=== PATIENT | male | born 1985 | race Caucasian/White ===

== ENCOUNTER 2018-11-22 12:33 | Emergency (ER) | payer OTHER ==
[~2018-11-22] VITALS: Ht 182.9 cm; Wt 92.1 kg
[~2018-11-22 12:33] MED LIST: IBUP800T48 PO; METH750T93 PO
[2018-11-22 12:42] VITALS: BP 133/61; PULSE 78; RESP 20; Ht 182.9 cm; Wt 92.1 kg
[2018-11-22] MEDS ORDERED: KETOROLAC 60 MG INJ IM STA (15:13)
[2018-11-22] MEDS ORDERED: METHOCARBAMOL 750 MG TAB PO ONE (15:30)
== END 2018-11-22 15:33 | disposition home or self-care (01) ==
LOC: FTE 12:33
DX: M54.5 Low back pain (principal); G89.29 Other chronic pain
CPT/HCPCS: 96372; J1885; Z7502; Z7610